=== PATIENT | female | born 1935 | race Caucasian/White ===

== ENCOUNTER 2017-04-10 21:13 | Emergency (ER) | payer MEDICARE ==
[2017-04-10 21:33] VITALS: RESP 18
--- NOTE | 2017-04-10 22:29 | ED PDOC ---
HPI: General Adult Time Seen by Provider: 04/10/17 21:28 Chief Complaint (Nursing): Flu-like Symptoms Chief Complaint (Provider): Flu-like Symptoms History Per: Family (Daughter) History/Exam Limitations: no limitations Onset/Duration Of Symptoms: Days Additional Complaint(s): 81 year old female with a past medical history of hypertension and aphasia due to a stroke in 2010 who presents to the emergency department accompanied by daughter with a complaint of flu like illness. As per daughter, patient seems to have less energy than usual and unable to walk as far as she normally can, unable to go up the stairs, and getting confused easily. She also reports a tactile fever, runny nose and cough. Patient was given ibuprofen around 6pm as well as Robitussin. Daugther decided to bring in patient for further evaluation after she discussed it with other family members. PMD: Dr. Duron Past Medical History Reviewed: Historical Data, Nursing Documentation, Vital Signs Vital Signs: Last Vital Signs Temp 97.8 F 04/10/17 21:30 Pulse 112 H 04/10/17 21:30 Resp 18 04/10/17 21:30 BP 136/55 L 04/10/17 21:30 Pulse Ox 98 04/10/17 22:34 - Medical History PMH: HTN Denies: HIV Other PMH: aphasia - Family History Family History: States: Hypertension - Home Medications Home Medications: Ambulatory Orders Medication Instructions Recorded Oseltamivir [Tamiflu] 75 mg PO BID #10 cap 04/10/17 - Allergies Allergies/Adverse Reactions: Allergies Allergy/AdvReac Type Severity Reaction Status Date / Time No Known Allergies Allergy Verified 04/10/17 21:33 Review of Systems ROS Statement: Except As Marked, All Systems Reviewed And Found Negative (As per HPI, otherwise negative. History was obtained by daughter who denies any other infectious symptoms) Constitutional: Positive for: Fever, Other (Good appetite, less energy than usual, and unable to walk as far as she normally can. ) ENT: Positive for: Nose Discharge Respiratory: Positive for: Cough Neurological: Positive for: Confusion Physical Exam - Reviewed Nursing Documentation Reviewed: Yes Vital Signs Reviewed: Yes - Physical Exam Appears: Positive for: Non-toxic, No Acute Distress Head Exam: Positive for: ATRAUMATIC, NORMOCEPHALIC Skin: Positive for: Warm, Dry Eye Exam: Positive for: EOMI, PERRL, Conjunctival injection ENT: Negative for: Pharyngeal Erythema, Tonsillar Exudate Neck: Positive for: Painless ROM, Supple Cardiovascular/Chest: Positive for: Regular Rate, Rhythm, Chest Non Tender. Negative for: Tachycardia Respiratory: Positive for: Normal Breath Sounds. Negative for: Wheezing Gastrointestinal/Abdominal: Positive for: Soft. Negative for: Tenderness Back: Positive for: Normal Inspection. Negative for: Decreased ROM Extremity: Positive for: Other (RIGHT upper arm hemiparesis with contracture). Negative for: Deformity Lymphatic: Negative for: Adenopathy Neurologic/Psych: Positive for: Alert, Aphasia, Other (RIGHT upper arm hemiparesis with contracture) - Laboratory Results Result Diagrams: 04/10/17 22:41 04/10/17 22:41 - ECG O2 Sat by Pulse Oximetry: 98 (RA) Pulse Ox Interpretation: Normal Medical Decision Making Medical Decision Making: Time: 2153 Initial Impression: Influenza like illness. Differential includes but not limited to influenza, viral syndrome, bronchitis, pneumonia, and sepsis. Initial Plan: Chemistry and lab work ordered [facility] Chest portablex-ray Tamiflu 75 mg PO Influenza A B Reevaluation Flu test A positive, mild hyperglycemia DW daughter findings and plan of care. Tamiflu, rest, fluids. Pt in good spirits and well-appearing and both patient and daughter eager to go home. Scribe Attestation: Documented by Ranjana Arellano, acting as a scribe for Minnie Morales MD. Provider Scribe Attestation: All medical record entries made by the Scribe were at my direction and personally dictated by me. I have reviewed the chart and agree that the record accurately reflects my personal performance of the history, physical exam, medical decision making, and the department course for this patient. I have also personally directed, reviewed, and agree with the discharge instructions and disposition. Disposition - Clinical Impression Clinical Impression: Influenza, Hyperglycemia Counseled Patient/Family Regarding: Studies Performed, Diagnosis, Need For Followup - Disposition Referrals: José Luis Wadsworth MD [Family Provider] - (FOLLOW UP WITH DR WADSWORTH IN 2- 3 DAYS FOR REEVALUATION) Disposition: Routine/Home Disposition Time: 23:00 Condition: GOOD Additional Instructions: Rest and drink plenty of hydrating fluids Return to ER if you have: trouble breathing, chest pain, fainting or near fainting, inability to take medications, severe weakness, or any other worrisome symptoms Instructions: Hyperglycemia, Adult, Flu
[2017-04-10 22:45] LABS: VENOUS BLOOD GAS BASE EXCESS 4.2 mmol/L (0.0-2.0); VENOUS BLOOD GAS PCO2 44 mmHg (40-60); VENOUS BLOOD GAS PO2 57 mm/Hg (30-55); VENOUS BLOOD PH 7.43 (7.32-7.43)
[2017-04-10 22:47] LABS: BASO % 0.3 % (0.0-2.0); EOS % 0.6 % (0.0-4.0); HEMOGLOBIN 12.8 g/dL (12.0-16.0); LYMPH # 0.6 K/uL (1.0-4.3); LYMPH % 8.3 % (20.0-40.0); MEAN CELL VOLUME 92.4 fl (81.0-99.0); MEAN CORPUSCULAR HEMOGLOBIN 30.5 pg (27.0-31.0); MEAN PLATELET VOLUME 7.8 fl (7.2-11.7); MONO # 0.5 K/uL (0.0-0.8); MONO % 7.7 % (0.0-10.0); NEUT # 5.7 K/uL (1.8-7.0); NEUT % 83.1 % (50.0-75.0); PLATELET COUNT 176 K/uL (130-400); RBC 4.22 Mil/uL (3.80-5.20); WHITE BLOOD COUNT 6.8 K/uL (4.8-10.8)
[2017-04-10 22:58] LABS: ALB/GLOB RATIO 1.2 (1.0-2.1); ALBUMIN 4.2 g/dL (3.5-5.0); ALT/SGPT 24 U/L (9-52); AST/SGOT 24 U/L (14-36); BLOOD UREA NITROGEN 19 mg/dl (7-17); CALCIUM 9.2 mg/dL (8.4-10.2); GFR AFRICAN-AMERICAN > 60; GFR NON-AFRICAN AMERICAN > 60
[2017-04-10 23:13] LABS: ANISOCYTOSIS SLIGHT; BANDS 4 % (0-2); EOSINOPHIL 1 % (0-7); LYMPHOCYTE 9 % (20-50); MONOCYTE 7 % (0-10); NEUTROPHIL 79 % (42-75); PLATELET ESTIMATE NORMAL (NORMAL); TOTAL CELLS COUNTED 100
[2017-04-10 23:19] LABS: B-TYPE NATRIURETIC PEPTIDE 378 pg/ml (0-900)
[2017-04-11 00:48] VITALS: BP 126/76; PULSE 92; TEMP 98.1; O2SAT 99
--- NOTE | 2017-04-11 08:36 | RAD ---
HISTORY: cough fever COMPARISON: No prior. FINDINGS: LUNGS: No active pulmonary disease. PLEURA: No significant pleural effusion identified, no pneumothorax apparent. CARDIOVASCULAR: Normal. OSSEOUS STRUCTURES: No significant abnormalities. VISUALIZED UPPER ABDOMEN: Normal. OTHER FINDINGS: None. IMPRESSION: No active disease.
== END 2017-04-11 00:49 | disposition home or self-care (01) ==
LOC: H.ER 21:13
DX: J11.1 Influenza due to unidentified influenza virus with other respiratory manifestations (principal); R73.9 Hyperglycemia, unspecified; I10 Essential (primary) hypertension